=== PATIENT | female | born 2000 | race African-American/Black ===

== ENCOUNTER 2021-09-17 17:31 | Emergency (ER) | payer MEDICAID ==
[~2021-09-17] VITALS: Ht 165.1 cm; Wt 63.5 kg
[2021-09-17 17:56] VITALS: BP 114/64
[2021-09-17] MEDS ORDERED: DOXY100C2 PO (22:38)
[2021-09-17] MEDS ORDERED: IBUP-1955 PO (23:07)
[2021-09-17] MEDS ORDERED: DOXY-326 PO (23:08)
[2021-09-17] MEDS ORDERED: HYDR-4209 PO (23:27)
--- NOTE | 2021-09-17 23:54 | NUR ---
DISCHARGE PAPERWORK GIVEN TO PT.
== END 2021-09-17 23:56 | disposition home or self-care (01) ==
LOC: ER 17:33
DX: L73.2 Hidradenitis suppurativa (principal)